=== PATIENT | female | born 1995 | race Caucasian/White ===

== ENCOUNTER 2016-11-23 15:38 | Emergency (ER) | payer OTHER, MEDICAID ==
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
== END 2016-11-23 17:28 | disposition disaster alternative care site (69) ==
LOC: GACC 15:38
DX: M54.2 Cervicalgia (principal); R51 Headache; R20.0 Anesthesia of skin; F41.9 Anxiety disorder, unspecified; F32.9 Major depressive disorder, single episode, unspecified; F17.210 Nicotine dependence, cigarettes, uncomplicated; Z88.0 Allergy status to penicillin; Z79.891 Long term (current) use of opiate analgesic; Z79.899 Other long term (current) drug therapy; V49.50XA Passenger injured in collision with unspecified motor vehicles in traffic accident, initial encounter

== ENCOUNTER → 2016-11-23 | Outpatient (CLI) | payer MEDICAID, OTHER ==
[~2016-11-23] MED LIST: ACETAMINOPHEN325 MG PO; APNO TOP; DERMOPLAST SPRA56 GM TOP; DULCOLAX5 MG PO; FEOSOL325 MG PO; LANSINOH7 GM TOP; MOTRIN800 MG PO; PRENATAL 1+1)(P1 TAB; PRENATAL 1+1)(P1 TAB PO; SURFAK240 MG PO; TUCKS1 EACH TOP; TUMS200 MG PO; TYLENOL PM EX-1 EACH PO
== END | disposition disaster alternative care site (69) ==
LOC: GAMB 15:11
DX: S19.9XXA Unspecified injury of neck, initial encounter (principal); M54.2 Cervicalgia; M25.512 Pain in left shoulder; M25.511 Pain in right shoulder; F41.0 Panic disorder [episodic paroxysmal anxiety]; R20.2 Paresthesia of skin
CPT/HCPCS: A0425; A0429